=== PATIENT | male | born 1990 | race Caucasian/White ===

== ENCOUNTER 2016-04-08 07:33 | Emergency (ER) | payer OTHER ==
[2016-04-08] MEDS ORDERED: OXYCODONE HCL 5 MG TABLET PO ONE (07:48)
[2016-04-08 07:53] VITALS: TEMP 97.7; BMI 19.9
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
[2016-04-08 09:18] VITALS: BP 118/64; PULSE 99
== END 2016-04-08 09:16 | disposition home or self-care (01) ==
LOC: ED 07:33
DX: S50.02XA Contusion of left elbow, initial encounter (principal); S80.02XA Contusion of left knee, initial encounter; V09.9XXA Pedestrian injured in unspecified transport accident, initial encounter
CPT/HCPCS: 73080; 73564; 99283; J3490